=== PATIENT | male | born 1950 | race Caucasian/White ===

== ENCOUNTER 2020-11-09 10:59 | Observation (INO) | payer OTHER, MEDICARE ==
[2020-11-09] MEDS ORDERED: Acetaminophen 325 MG Tab PO PRN (11:35)
[2020-11-09] MEDS ORDERED: Docusate Sodium 100 MG Cap PO PRN (11:35)
[2020-11-09] MEDS ORDERED: Ondansetron 4 MG Tab.DIS PO PRN (11:35)
[2020-11-09] MEDS ORDERED: HYDROXYZINE HCL 25 MG PO PRN (11:55)
[2020-11-09] MEDS ORDERED: POLYETHYLENE GLYCOL 17 GM PO SCH (12:00)
--- NOTE | 2020-11-09 12:23 | HP ---
CHIEF COMPLAINT: Facial swelling and pruritus. HISTORY OF PRESENT ILLNESS: The patient is a 70-year-old gentleman with past medical history of obesity, hyperlipidemia, restless legs syndrome, obstructive sleep apnea on CPAP, hypertension, and recent left shoulder arthroplasty last 10/15/2020, who was admitted from [facility] because the patient for the last 2 days has been complaining of pruritus and lately swelling of the lips and face. The patient was seen by Dr. Austin at the clinic and he was given Solu-Medrol 125 mg IM for possible angioedema and allergic reaction. He was then admitted for further evaluation and management. PAST MEDICAL HISTORY: As in HPI. SOCIAL HISTORY: The patient is , lives in town. Nonsmoker, nonalcohol drinker. REVIEW OF SYSTEMS: The patient denies any fever, chills, headache, shortness of breath, wheezing, abdominal pain, nausea, vomiting. HOME MEDICATIONS: Tylenol, hydroxyzine, lisinopril, duloxetine, atorvastatin, and diphenhydramine. ALLERGIES: Diflucan, doxycycline, and shellfish. PHYSICAL EXAMINATION: General: The patient is alert and oriented, not in any acute distress. Vital Signs: Blood pressure is 124/66, pulse of 104, temperature of 100. SHEENT: Normocephalic. There is some swelling on upper and lower lips and mild swelling of the face. Neck: There is no JVD. No lymphadenopathy. Neck is supple. Heart: Regular rate and rhythm. Normal S1 and S2. No gallops. No rubs. Lungs: Diminished breath sounds on both bases, but no crackles, wheezing, or stridor. Abdomen: Obese, soft, nontender. Bowel sounds positive. Extremities: Remarkable for trace bilateral pedal edema. No calf tenderness. The patient is wearing a left arm sling. LABORATORY DATA: Lab workup done at the clinic, CBC: WBC is 8.9, hemoglobin is 12.6, hematocrit is 37.7, platelet is 320. Comp panel: Glucose random blood sugar is 115. The rest of the panel unremarkable. ADMITTING DIAGNOSES: 1. Hypersensitivity reaction/angioedema, etiology? 2. Recent left shoulder arthroplasty. 3. Hypertension. 4. Obstructive sleep apnea, on CPAP. 5. Dyslipidemia. TREATMENT PLAN: The patient is going to be admitted to observation. He will be started on oral dexamethasone and I am going to discontinue his lisinopril because this might be contributing to his angioedema and/or hypersensitivity reaction and we will also put him on DVT prophylaxis and the rest of the management as necessary, and the patient is a full code. MOD[facility] /[id number]
[2020-11-09] MEDS ORDERED: Acetaminophen 500 MG Tab PO SCH (13:00)
[2020-11-09] MEDS: Sodium Chloride 0.9% 1,000 ML IV SCH ×2 (13:12→21:44)
[2020-11-09] MEDS: Dexamethasone 4 MG/ML SDV IVPUSH SCH ×2 (13:41→21:39)
[2020-11-09] MEDS ORDERED: Acetaminophen 500 MG Tab PO PRN (15:43)
[2020-11-09] MEDS: Enoxaparin 40 MG/0.4 ML Syringe SUBCUT SCH (16:06)
[2020-11-09] MEDS: Famotidine 20 MG Tab PO SCH (21:49)
[2020-11-09] MEDS ORDERED: DULoxetine 30 MG Cap**OWN MED PO SCH (23:45)
[2020-11-09] MEDS: [UNRECOGNIZED DRUG - OTHER] PO SCH (23:46)
[2020-11-09] MEDS: CITRACAL PO SCH (23:46)
[2020-11-10] MEDS: Sodium Chloride 0.9% 1,000 ML IV SCH (06:21)
[2020-11-10] MEDS: CITRACAL PO SCH (08:54)
[2020-11-10] MEDS: Enoxaparin 40 MG/0.4 ML Syringe SUBCUT SCH (08:54)
[2020-11-10] MEDS: Famotidine 20 MG Tab PO SCH (08:54)
[2020-11-10] MEDS: [UNRECOGNIZED DRUG - OTHER] PO SCH (08:54)
[2020-11-10] MEDS: Dexamethasone 4 MG/ML SDV IVPUSH SCH (08:55)
[2020-11-10] MEDS ORDERED: atorvaSTATin 10 MG Tab PO SCH (09:00)
[2020-11-10] MEDS ORDERED: Multivitamins,Therapeutic Tab PO SCH (09:00)
[2020-11-10] MEDS ORDERED: SENNOSIDES 8.6 MG PO SCH (09:00)
[2020-11-10] MEDS ORDERED: Celecoxib 100 MG Cap PO SCH (09:00)
--- OUTSIDE RECORDS SUMMARY | 2020-11-10 09:15 | XMSREPORT | Referral Summary ---
:1950 Author Organization [employer] [facility] Address [address] [place] [address] Care Team Providers Name Role Phone Maisha Chery [facility] Primary Care Provider Reason for Referral Consult (Routine) Status Reason Specialty Diagnoses / Referred By Referred To Procedures Contact Contact Auth Not Patient Internal Diagnoses Hypersensitivity reaction, initial encounter Joanna Chery [facility] [address] [facility], [place] [address] [place] [id number] Phone: CATION SPECIALIST Encounter Details Date Type Department Care Team Description 11/10/2020 Orders Only [facility] Joanna Chery Hyper sensitivity reaction, Azul Ferrera [facility] initial encounter (Primary [address]) [place], [place] [address] [address] [place], [place] [phone] [id number] [phone] Allergies Active Allergy Reactions Severity Noted Date Comments Fluconazole Swelling of High 09/23/2019 Unsure was on b oth Face,throat,lips or Diflucan and tongue/Angioedema - Doxycycl ine lip Allergy swelling Doxycycline Swelling of High 09/23/2019 Unsure was on b oth Face,throat,lips or Diflucan and tongue/Angioedema - Doxycycl ine lip Allergy swelling Shellfish-Derived Nausea And Vomiting - Low 08/21/2014 Products Intolerance documented as of this encounter (statuses as of 11/10/2020) Medications Medication Sig Dispensed Refills Start Date End Date Status Multiple Vitamin Take 1 Tab by mouth 0 12/27/2010 Active (MULTIVITAMIN PO) daily. diphenhydramine-APAP Take 1 Tab by mouth 0 Active , sleep, (TYLENOL PM nightly. EXTRA STRENGTH) 25-500 MG tablet clotrimazole Apply twice a day 30 g 1 04/06/2020 04/06/20 21 Active (LOTRIMIN) 1 % cream to rash as needed. atorvastatin TAKE ONE (1) TAB BY 90 Tab 3 05/04/2020 Active (LIPITOR) 10 MG MOUTH DAILY. tablet polyethylene glycoL Take 17 g by mouth 0 Active 3350 (MIRALAX) 17 every 48 hours. GM/SCOOP powder senna (SENOKOT) Take 1 Tab by mouth 0 Active tablet daily. DULoxetine Take 1 capsule 60 Cap 2 07/03/2020 Act anat (CYMBALTA) 30 MG CR daily. capsule lisinopriL TAKE ONE (1) TAB BY 90 Tab 2 07/23/2020 Active (PRINIVIL;ZESTRIL) MOUTH DAILY. 10 MG tablet hydrOXYzine HCL Take 1 Tab by mouth 60 Tab 2 08/03/2020 Active (ATARAX) 25 MG 3 times daily as tablet needed for Itching or Anxiety. celecoxib (CELEBREX) Take 1 Cap by mouth 30 Cap 2 0 09/29/2021 Active 100 MG capsule daily. acetaminophen Take 1,000 mg by 0 10/15/2020 Active (TYLENOL) 500 MG mouth. tablet amoxicillin (AMOXIL) Take 1,000 mg by 0 Active 500 MG capsule mouth as needed. USES PRIOR TO DENTIST APPOINTMENTS calcium Take 2 Tabs by 0 10/15/2020 Acti ve citrate-vitamin D mouth. (CITRACAL+D) 315-200 MG-UNIT per tablet cefadroxil (DURICEF) Take 500 mg by 0 10/16/2020 Active 500 MG capsule mouth 2 times daily. X 14 DAYS documented as of this encounter (statuses as of 11/10/2020) Active Problems Problem Noted Date Instability of left shoulder joint 03/02/2020 Obesity Hyperlipidemia Overview: Mild, on dietary measures. Hypertension Restless leg syndrome Overview: Periodic leg movement disorder. EVIE on CPAP Osteoarthritis Overview: Saw Dr. Chandler in [place] 2011. Prediabetes documented as of this encounter (statuses as of 11/10/2020) Immunizations Name Administration Dates Next Due Fluzone High Dose Quadrivalent 0.7ML 07/03/2020 (2020) INFL (high dose) 07/04/2019, 08/31/2018, 09/11/2017, 09/07/2016, 08/13/2015 PCV13 (PNEUMOCOCCAL) 08/13/2015 PPSV23 (Pneumococcal) 05/09/2017 TDAP 06/14/2013 ZOSTER (Zostavax) 10/24/2016 documented as of this encounter Social History Tobacco Use Types Packs/Day Years Used Date Former Smoker Cigarettes 2.5 25 Quit: 12/27/18 91 Smokeless Tobacco: Never Used Alcohol Use Drinks/Week oz/Week Comments Yes 2 Standard drinks or equivalent 1.7 beer Sex Assigned at Date Recorded Not on file COVID-19 Exposure Response Date Recorded In the last month, have you been in contact with No / Unsure 11/09/2020 8:45 AM RELOCATION SPECIALIST someone who was confirmed or suspected to have Coronavirus / COVID-19? documented as of this encounter Plan of Treatment Date Type Specialty Care Team Description 12/31/2020 Follow-Up Internal Medicine Joanna Chery, [facility] [address] [place] [id number] [phone] Name Type Priority Associated Diagnoses Order S chedule AMB REFERRAL TO Outpatient Referral Hypersensitivity O rdered: INTERNAL MEDICINE reaction, initial 11/10 encounter documented as of this encounter Visit Diagnoses Diagnosis Hypersensitivity reaction, initial encou nter - Primary documented in this encounter Insurance Payer Benefit Plan Subscriber ID Effective Phone Address Typ e / Group Dates MEDICARE MEDICARE A [id number] 2015-Pres [address] [address] [facility] [id number] 2015-Prese [phone] [address] [facility] [employer] [facility] [place] [phone] [place] [address] documented as of this encounter
--- NOTE | 2020-11-10 10:17 | PN ---
DATE: 11/10/2020 SUBJECTIVE: The patient is a 70-year-old male who was admitted because of facial swelling and pruritus and possibly angioedema/ hypersensitivity reaction. The patient this morning is feeling good and the swelling on his lips and face as well as his hands has improved. The patient denies any chest pain, shortness of breath, abdominal pain, nor any other complaints. OBJECTIVE: Vital Signs: Blood pressure is 136/82, pulse 92, respirations 20, temperature of 98.1, saturation is 93% on room air. SHEENT: Normocephalic. [place] palpebral conjunctivae. Sclerae anicteric. The swelling on the lips and cheeks has improved. Neck: No JVD. No lymphadenopathy. Heart: Regular rate and rhythm. Normal S1 and S2. No gallops. No rubs. Lungs: Equal bilaterally. No crackles. No wheezing. Abdomen: Obese, soft, nontender. Bowel sounds positive. Extremities: Negative for any pedal edema. No calf tenderness. PLAN: We will discharge the patient home today. [facility] /[id number]
[2020-11-10 11:44] VITALS: BP 140/71; PULSE 95
--- NOTE | 2020-11-10 14:12 | DISCH ---
FINAL DIAGNOSES: 1. Hypersensitivity reaction/angioedema. 2. Recent left shoulder arthroplasty. 3. Hypertension. 4. Obstructive sleep apnea on CPAP. 5. Dyslipidemia. BRIEF HISTORY OF PRESENT ILLNESS: The patient is a 70-year-old gentleman with past medical history of obesity, hyperlipidemia, restless legs syndrome, obstructive sleep apnea, hypertension, and recent left shoulder arthroplasty, who was admitted because of pruritus and swelling of the lips and face. HOSPITAL COURSE: The patient was admitted to observation, General Medicine Floor. He was started on Decadron 2 mg IV twice a day and the patient was also resumed on his home medication except for the lisinopril. The patient did well overnight, swelling of the face and lips has improved as well as the pruritus and he was subsequently discharged. CONDITION ON DISCHARGE: Improved. DISCHARGE INSTRUCTIONS: The patient to resume home medication except for lisinopril. We will also put the patient on prednisone 40 mg daily for the next 5 days. He is going to follow up with his primary care provider in about a week to have recheck of his blood pressure. If the blood pressure starts creeping up, then he needs to be on another blood pressure medication. [facility] /[id number]
== END 2020-11-10 10:10 | disposition home or self-care (01) ==
LOC: UNDOADMOB 11:05 → DL.MS 11:05
PROVIDERS: ADMIT Internal Medicine; ATTEND Internal Medicine
DX: L29.9 Pruritus, unspecified (principal); T78.40XA Allergy, unspecified, initial encounter; E66.9 Obesity, unspecified; E78.5 Hyperlipidemia, unspecified; G25.81 Restless legs syndrome; G47.33 Obstructive sleep apnea (adult) (pediatric); I10 Essential (primary) hypertension; Z88.8 Allergy status to other drugs, medicaments and biological substances; Z88.1 Allergy status to other antibiotic agents; Z91.013 Allergy to seafood; Z20.822 Contact with and (suspected) exposure to COVID-19; Z68.41 Body mass index [BMI] 40.0-44.9, adult
CPT/HCPCS: 96372; 96374; 96376; 99217; 99218; A9270-GY; G0378; G0379; J1100; J1650; J7030; U0002

== ENCOUNTER 2024-03-06 10:05 | Day surgery (SDC) | payer MEDICARE, OTHER ==
[2024-03-06] MEDS ORDERED: Acetaminophen/Codeine 300-30 MG Tab PO PRN (10:15)
[2024-03-06] MEDS ORDERED: Ondansetron 4 MG/2 ML SDV IVPUSH PRN (10:15)
[2024-03-06] MEDS ORDERED: Acetaminophen 325 MG Tab PO PRN (10:15)
[2024-03-06] MEDS: Proparacaine 0.5% Ophth Soln 15 ML Bottle EYELF ONE ×2 (10:36→11:09)
[2024-03-06] MEDS: Moxifloxacin 0.5% Ophth Soln 3 ML Bottle EYELF ONE (10:36)
[2024-03-06] MEDS: Povidone-Iodine 5% Sterile Ophth Soln 30 ML Bottle EYELF ONE ×2 (10:37→11:09)
[2024-03-06] MEDS: Tropicamide 1% Ophth Soln 15 ML Bottle EYELF ONE (10:38)
[2024-03-06] MEDS: Phenylephrine 10% Ophth Soln 5 ML Bot EYELF ONE (10:38)
[2024-03-06] MEDS: Timolol Maleate 0.5% Ophth Soln 5 ML Bottle EYELF ONE (10:39)
[2024-03-06] MEDS: Cataract Ophth Solution EYELF ONE (10:39)
[2024-03-06] MEDS: Sodium Chloride 0.9% 10 ML Syringe FLUSH PRN (10:41)
[2024-03-06] MEDS: Lidocaine 1% 30 ML SDV ONE (11:09)
[2024-03-06] MEDS: Apraclonidine 0.5% Ophth Soln 5 ML Bot EYELF ONE (11:10)
[2024-03-06] MEDS: Vancomycin 500 MG SDV EYELF ONE (11:10)
[2024-03-06] MEDS: Dexamethasone/Neomycin/Polymyxin B Ophth Oint 3.5 GM Tube EYELF ONE (11:10)
[2024-03-06] MEDS: Diclofenac Sodium 0.1% Ophth Soln 5 ML Bottle EYELF ONE (11:10)
[2024-03-06 11:44] VITALS: BP 140/81; PULSE 70
== END 2024-03-06 11:55 | disposition home or self-care (01) ==
LOC: DL.SDS 10:05
PROVIDERS: ATTEND Ophthalmology
DX: E11.36 Type 2 diabetes mellitus with diabetic cataract (principal); H25.812 Combined forms of age-related cataract, left eye; I10 Essential (primary) hypertension; E66.01 Morbid (severe) obesity due to excess calories; Z68.41 Body mass index [BMI] 40.0-44.9, adult; Z87.891 Personal history of nicotine dependence; Z79.84 Long term (current) use of oral hypoglycemic drugs; Z79.899 Other long term (current) drug therapy
CPT/HCPCS: A9270-GY; J3370; J3490; V2632

== ENCOUNTER 2024-03-27 08:51 | Day surgery (SDC) | payer MEDICARE, OTHER ==
[2024-03-27] MEDS ORDERED: Sodium Chloride 0.9% 10 ML Syringe FLUSH PRN (09:00)
[2024-03-27] MEDS ORDERED: Acetaminophen 325 MG Tab PO PRN (09:00)
[2024-03-27] MEDS ORDERED: Acetaminophen/Codeine 300-30 MG Tab PO PRN (09:00)
[2024-03-27] MEDS ORDERED: Ondansetron 4 MG/2 ML SDV IVPUSH PRN (09:00)
[2024-03-27] MEDS: Moxifloxacin 0.5% Ophth Soln 3 ML Bottle EYERT ONE (09:27)
[2024-03-27] MEDS: Proparacaine 0.5% Ophth Soln 15 ML Bottle EYERT ONE ×2 (09:27→10:35)
[2024-03-27] MEDS: Povidone-Iodine 5% Sterile Ophth Soln 30 ML Bottle EYERT ONE ×2 (09:28→10:35)
[2024-03-27] MEDS: Phenylephrine 10% Ophth Soln 5 ML Bot EYERT ONE (09:29)
[2024-03-27] MEDS: Tropicamide 1% Ophth Soln 15 ML Bottle EYERT ONE (09:29)
[2024-03-27] MEDS: Timolol Maleate 0.5% Ophth Soln 5 ML Bottle EYERT ONE (09:29)
[2024-03-27] MEDS: Cataract Ophth Solution EYERT ONE (09:30)
[2024-03-27] MEDS: Lidocaine 1% 30 ML SDV ONE (10:44)
[2024-03-27] MEDS: Vancomycin 500 MG SDV EYERT ONE (10:45)
[2024-03-27] MEDS: Diclofenac Sodium 0.1% Ophth Soln 5 ML Bottle EYERT ONE (10:49)
[2024-03-27] MEDS: Apraclonidine 0.5% Ophth Soln 5 ML Bot EYERT ONE (10:49)
[2024-03-27] MEDS: Dexamethasone/Neomycin/Polymyxin B Ophth Oint 3.5 GM Tube EYERT ONE (10:49)
[2024-03-27 11:26] VITALS: BP 154/90; PULSE 76
== END 2024-03-27 11:20 | disposition home or self-care (01) ==
LOC: DL.SDS 08:51
PROVIDERS: ATTEND Ophthalmology
DX: E11.36 Type 2 diabetes mellitus with diabetic cataract (principal); H25.811 Combined forms of age-related cataract, right eye; I10 Essential (primary) hypertension; E78.5 Hyperlipidemia, unspecified; E66.01 Morbid (severe) obesity due to excess calories; G47.33 Obstructive sleep apnea (adult) (pediatric); Z87.891 Personal history of nicotine dependence; Z79.899 Other long term (current) drug therapy; Z91.013 Allergy to seafood; Z88.8 Allergy status to other drugs, medicaments and biological substances
CPT/HCPCS: 66984; A9270; J3370; J3490